=== PATIENT | male | born 1965 | race Caucasian/White ===

== ENCOUNTER 2024-07-02 09:23 | Outpatient (CLI) | payer BC ==
[2024-07-02 09:59] LABS: HEMOGLOBIN A1C 7.7 % (4.5-6.2)
[2024-07-02 10:41] LABS: CHOL/HDL RATIO 4.1 (0.00-4.99); CHOLESTEROL 195 MG/DL (0-200); HDL CHOLESTEROL 48 MG/DL (35-60); LDL CHOLESTEROL 124 MG/DL (50-100); TRIGLYCERIDES 69 MG/DL (20-135)
[2024-07-03 18:29] LABS: CREATININE, URINE 122.1 mg/dL (Not Estab.); MICROALBUMIN,U,RANDOM 8.1 ug/mL (Not Estab.)
== END 2024-07-02 23:59 | disposition home or self-care (01) ==
LOC: RAD 09:23
PROVIDERS: ATTEND Family Medicine
DX: E11.8 Type 2 diabetes mellitus with unspecified complications (principal); E78.5 Hyperlipidemia, unspecified; Z79.899 Other long term (current) drug therapy
CPT/HCPCS: 36415; 80061; 82043; 82570; 83036